=== PATIENT | female | born 2000 | race Hispanic/Latino ===

== ENCOUNTER → 2021-08-11 | Outpatient (CLI) | payer OTHER ==
[2021-08-11 12:06] LABS: INR 1.03 (0.85-1.15); PROTHROMBIN TIME 11.2 SEC (9.6-11.6)
[2021-08-11 12:08] LABS: PARTIAL THROMBOPLASTIN TIME 29.9 SEC (26.3-35.5)
== END | disposition home or self-care (01) ==
LOC: LAB 11:10
PROVIDERS: ATTEND Internal Medicine
DX: E04.2 Nontoxic multinodular goiter (principal)
CPT/HCPCS: 36415; 85610; 85730

== ENCOUNTER → 2021-08-18 | Outpatient (CLI) | payer OTHER ==
[2021-08-18 08:04] LABS: INR 1.01 (0.85-1.15)
[2021-08-18 08:05] LABS: PARTIAL THROMBOPLASTIN TIME 30.1 SEC (26.3-35.5)
== END | disposition home or self-care (01) ==
LOC: RAH 07:36
PROVIDERS: ATTEND Internal Medicine
DX: C73 Malignant neoplasm of thyroid gland (principal); E66.9 Obesity, unspecified; R53.82 Chronic fatigue, unspecified; Z98.891 History of uterine scar from previous surgery; E03.9 Hypothyroidism, unspecified; Z83.3 Family history of diabetes mellitus; Z79.890 Hormone replacement therapy; Z79.01 Long term (current) use of anticoagulants; Z79.899 Other long term (current) drug therapy
CPT/HCPCS: 10005; 10006; 36415; 85610; 85730